=== PATIENT | male | born 1980 | race Two or more races ===

== ENCOUNTER 2023-05-08 19:26 | Emergency (ER) | payer OTHER ==
[~2023-05-08] VITALS: Ht 182.9 cm; Wt 75.0 kg
[2023-05-08 21:41] LABS: Basophils # (auto) 0 10 ^3/uL (0-0.2); Basophils % (auto) 0.4 % (0.0-2.0); Eosinophils # (auto) 0.1 10 ^3/uL (0-0.8); Eosinophils % (auto) 1.3 % (0.0-7.0); Hematocrit 49.1 % (41.0-53.0); Hemoglobin 16.5 g/dL (13.5-17.5); Lymphocytes # (auto) 1.9 10 ^3/uL (0.4-5.4); Lymphocytes % (auto) 19.3 % (10.0-50.0); Mean Corpuscular Hemoglobin 30.4 pg (28.0-32.0); Mean Corpuscular Hgb Conc. 33.7 g/dL (32.0-36.0); Mean Corpuscular Volume 90.2 fL (80.0-100.0); Monocytes # (auto) 0.8 10 ^3/uL (0-1.3); Monocytes % (auto) 8.4 % (0.0-12.0); Neutrophils # (auto) 6.8 10 ^3/uL (1.6-8.6); Neutrophils % (auto) 70.6 % (37.0-80.0); Nucleated Red Blood Cells % 0.1 %; Red Blood Cells 5.44 10^6/uL (4.5-5.90); Red Cell Distribution Width 13.6 % (11.8-14.3); White Blood Cell 9.7 10^3/uL (4.4-10.8)
[2023-05-08 22:04] LABS: Alanine Aminotransferase 19 U/L (7-40); Albumin 4.3 g/dL (3.2-4.8); Alkaline Phosphatase 111 U/L (46-116); Anion Gap 4 (5-15); Aspartate Aminotransferase 14 U/L (13-40); BUN/Creatinine Ratio 11.5 (10.0-20.0); Bilirubin, Total 0.4 mg/dL (0.2-1.0); Blood Urea Nitrogen 10 mg/dL (9-23); Calcium 9.5 mg/dL (8.7-10.4); Carbon Dioxide 31 mmol/L (20-30); Chloride 105 mmol/L (98-107); Glucose 96 mg/dL (74-106); Potassium 4.1 mmol/L (3.5-5.1); Sodium 140 mmol/L (136-145); Total Protein 7.7 g/dL (5.7-8.2)
[2023-05-08] MEDS ORDERED: CEPH500C PO (23:14)
[2023-05-08] MEDS ORDERED: MUPI2CRE17 EX (23:14)
[2023-05-08 23:39] VITALS: BP 138/89; PULSE 102; RESP 18; TEMP 97.8; O2SAT 98
== END 2023-05-08 23:41 | disposition home or self-care (01) ==
LOC: ER 19:26
DX: S91.001A Unspecified open wound, right ankle, initial encounter (principal); I73.9 Peripheral vascular disease, unspecified; X58.XXXA Exposure to other specified factors, initial encounter; Y93.89 Activity, other specified; Y92.89 Other specified places as the place of occurrence of the external cause; Y99.8 Other external cause status
CPT/HCPCS: 36415; 80053; 85025

== ENCOUNTER 2023-06-18 20:40 | Emergency (ER) | payer OTHER ==
[~2023-06-18] VITALS: Ht 182.9 cm; Wt 112.0 kg
[~2023-06-18 20:40] MED LIST: CEPH500C PO; MUPI2CRE17 EX
[2023-06-18 20:55] VITALS: BP 138/75; PULSE 114; RESP 18; TEMP 98.1; O2SAT 98
[2023-06-18 22:42] LABS: Basophils # (auto) 0 10 ^3/uL (0-0.2); Basophils % (auto) 0.4 % (0.0-2.0); Eosinophils # (auto) 0.2 10 ^3/uL (0-0.8); Eosinophils % (auto) 1.6 % (0.0-7.0); Hematocrit 50.6 % (41.0-53.0); Hemoglobin 16.9 g/dL (13.5-17.5); Lymphocytes % (auto) 18.1 % (10.0-50.0); Mean Corpuscular Hgb Conc. 33.4 g/dL (32.0-36.0); Mean Corpuscular Volume 89.8 fL (80.0-100.0); Monocytes % (auto) 8.9 % (0.0-12.0); Nucleated Red Blood Cells % 0.1 %; Red Blood Cells 5.63 10^6/uL (4.5-5.90); Red Cell Distribution Width 13.5 % (11.8-14.3); White Blood Cell 11.2 10^3/uL (4.4-10.8)
[2023-06-18 22:53] LABS: Alanine Aminotransferase 21 U/L (7-40); Albumin 4.6 g/dL (3.2-4.8); Alkaline Phosphatase 113 U/L (46-116); Anion Gap 6 (5-15); Aspartate Aminotransferase 12 U/L (13-40); BUN/Creatinine Ratio 10.2 (10.0-20.0); Blood Urea Nitrogen 9 mg/dL (9-23); Carbon Dioxide 27 mmol/L (20-30); Chloride 105 mmol/L (98-107); Glucose 109 mg/dL (74-106); Potassium 4.1 mmol/L (3.5-5.1); Sodium 138 mmol/L (136-145)
[2023-06-18 22:54] LABS: Bilirubin, Total 0.3 mg/dL (0.2-1.0); Total Protein 7.9 g/dL (5.7-8.2)
[2023-06-19] MEDS ORDERED: TETANUS-DIPTH-ACEL PERTUSSIS 0.5ML SYR Tdap IM ONE
[2023-06-19] MEDS ORDERED: CEPHALEXIN 250 MG CAP PO ONE
[2023-06-19] MEDS ORDERED: SULFAMETHOX W/TRIMETH(800/160MG) DS TAB PO ONE
[2023-06-19] MEDS ORDERED: AUG875T PO (00:45)
[2023-06-19] MEDS ORDERED: BACDST PO (00:45)
[2023-06-19] MEDS ORDERED: IBUP-1455 PO (00:49)
[2023-06-19] MEDS ORDERED: CHLO4SOL EX (00:49)
== END 2023-06-19 00:57 | disposition home or self-care (01) ==
LOC: ER 20:40
DX: L03.115 Cellulitis of right lower limb (principal); Z79.899 Other long term (current) drug therapy
CPT/HCPCS: 36415; 80053; 83605; 85025; 90471; 90715

== ENCOUNTER 2023-09-09 05:15 | Emergency (ER) | payer OTHER ==
[~2023-09-09] VITALS: Ht 182.9 cm; Wt 113.2 kg
[~2023-09-09 05:15] MED LIST changes: +AUG875T PO; +BACDST PO; +CHLO4SOL EX; +IBUP-1455 PO
[2023-09-09 06:15] VITALS: BP 135/95; PULSE 90; RESP 18; O2SAT 100
[2023-09-09] MEDS ORDERED: VANCOMYCIN 1GM/200ML 200 ML IV ONE (07:30)
== END 2023-09-09 17:50 | disposition left against medical advice (07) ==
LOC: ER 05:15
DX: L03.115 Cellulitis of right lower limb (principal); M79.661 Pain in right lower leg; I10 Essential (primary) hypertension; F17.210 Nicotine dependence, cigarettes, uncomplicated; Z79.1 Long term (current) use of non-steroidal anti-inflammatories (NSAID); Z79.2 Long term (current) use of antibiotics; Z79.899 Other long term (current) drug therapy
CPT/HCPCS: 73590; 73620; 93971

== ENCOUNTER 2024-03-09 11:30 | Emergency (ER) | payer OTHER ==
[~2024-03-09] VITALS: Ht 182.9 cm; Wt 111.0 kg
[2024-03-09 13:09] LABS: Basophils # (auto) 0.1 10 ^3/uL (0-0.2); Basophils % (auto) 1.1 % (0.0-2.0); Eosinophils # (auto) 0.2 10 ^3/uL (0-0.8); Eosinophils % (auto) 1.8 % (0.0-7.0); Hematocrit 48.9 % (41.0-53.0); Hemoglobin 16.3 g/dL (13.5-17.5); Lymphocytes # (auto) 1.2 10 ^3/uL (0.4-5.4); Lymphocytes % (auto) 14.5 % (10.0-50.0); Mean Corpuscular Hemoglobin 29.6 pg (28.0-32.0); Mean Corpuscular Hgb Conc. 33.4 g/dL (32.0-36.0); Mean Corpuscular Volume 88.6 fL (80.0-100.0); Monocytes # (auto) 0.8 10 ^3/uL (0-1.3); Neutrophils # (auto) 6.2 10 ^3/uL (1.6-8.6); Neutrophils % (auto) 73.6 % (37.0-80.0); Nucleated Red Blood Cells % 0.1 %; Platelet Count (auto) 262 10^3/uL (140-450); Red Blood Cells 5.52 10^6/uL (4.5-5.90); Red Cell Distribution Width 13.5 % (11.8-14.3); White Blood Cell 8.5 10^3/uL (4.4-10.8)
[2024-03-09 13:26] LABS: Alanine Aminotransferase 19 U/L (7-40); Albumin 4.1 g/dL (3.2-4.8); Alkaline Phosphatase 108 U/L (46-116); Anion Gap 2 (5-15); Aspartate Aminotransferase 9 U/L (13-40); BUN/Creatinine Ratio 11.2 (10.0-20.0); Bilirubin, Total 0.6 mg/dL (0.2-1.0); Blood Urea Nitrogen 11 mg/dL (9-23); Calcium 9.6 mg/dL (8.7-10.4); Carbon Dioxide 33 mmol/L (20-30); Chloride 106 mmol/L (98-107); Glucose 100 mg/dL (74-106); Potassium 4.1 mmol/L (3.5-5.1); Sodium 141 mmol/L (136-145); Total Protein 7.1 g/dL (5.7-8.2)
[2024-03-09 13:34] LABS: CRP High Sensitivity 1.26 mg/dL (<1.0)
[2024-03-09] MEDS ORDERED: VANCOMYCIN PER PHARMACY 0 MG IV SCH (14:15)
[2024-03-09 14:41] LABS: Erythrocyte Sedimentation Rate 2 mm/hr (0-20)
[2024-03-09] MEDS ORDERED: VANCOMYCIN 1GM/200ML 200 ML IV SCH (15:15)
[2024-03-09 15:47] LABS: Amphetamine Screen, Urine Pos (NEGATIVE); Barbiturate Scree,Urine Neg (NEGATIVE); Benzodiazephine Screen, Urine Neg (NEGATIVE)
[2024-03-09 15:49] LABS: Cannabinoid Screen, Urine Neg (NEGATIVE); Cocaine Screen, Urine Neg (NEGATIVE); Opiate Scree,Urine Neg (NEGATIVE); Phencyclidine Screen, Urine Neg (NEGATIVE)
[2024-03-09] MEDS: VANCOMYCIN 1GM/200ML 200 ML IV SCH (16:04)
[2024-03-09 16:07] VITALS: PULSE 96; RESP 16; O2SAT 98
[2024-03-09] MEDS: PIPERACILLIN-TAZOB 3.375GM 100 ML IV ONE (16:40)
[2024-03-09 16:42] VITALS: TEMP 97.5
[2024-03-09] MEDS ORDERED: AUG875T PO (17:57)
[2024-03-09] MEDS ORDERED: DOXY-286 PO (17:57)
[2024-03-09 18:13] VITALS: BP 130/72; PULSE 85; RESP 19; O2SAT 100
== END 2024-03-09 18:49 | disposition home or self-care (01) ==
LOC: ER 11:30
DX: S81.801A Unspecified open wound, right lower leg, initial encounter (principal); L03.116 Cellulitis of left lower limb; L03.115 Cellulitis of right lower limb; F15.10 Other stimulant abuse, uncomplicated; I10 Essential (primary) hypertension; F17.210 Nicotine dependence, cigarettes, uncomplicated; F12.10 Cannabis abuse, uncomplicated; E11.9 Type 2 diabetes mellitus without complications; Z79.899 Other long term (current) drug therapy
CPT/HCPCS: 36415; 80053; 80307; 83605; 83880; 85025; 85652; 86141; 87040; 93970; 96365; 96366; 96368; 99285; J2543; J3370

== ENCOUNTER 2024-10-07 02:11 | Emergency (ER) | payer MEDICAID, OTHER ==
[~2024-10-07] VITALS: Ht 182.9 cm; Wt 106.3 kg
[~2024-10-07 02:11] MED LIST changes: +DOXY-286 PO
[2024-10-07] MEDS ORDERED: DOXY100C4 PO (03:27)
--- NOTE | 2024-10-07 03:32 | ED.PDOC ---
History of Present Illness(SKN HPI Comments Pt presents to ED d/t to right lower extremity swelling. Pt states this has been on going for the past 2 years. Pt admits to odor, and drainage. Right ankle currently wrapped in dressing. Denies any other PMH. VSS. Chief Complaint: Lower Extremity Time Seen by MD: 02:27 History of Present Illness: Nurses Notes, Medications, Allergies Allergies: Coded Allergies: NO KNOWN ALLERGIES (Unverified , 05/08/23) Home Meds Active Scripts Amoxicillin & Pot Clavulanate (AUGMENTIN TABLET) 875 Mg Tb, 875 MG PO BID for 10 Days, #20 TAB Prov:ROBERTO PEREZ MD 03/09/24 Doxycycline Hyclate (DOXYCYCLINE HYCLATE) 100 Mg Tab, 1 TAB PO BID, #20 TAB Prov:ROBERTO PEREZ MD 03/09/24 Ibuprofen Micronized (Ibuprofen) 800 Mg Tab, 800 MG PO Q8HP PRN, #20 TAB Prov:AMANDA HUFFMAN [facility] 06/19/23 Chlorhexidine Gluconate (GNP ANTISEPTIC SKIN CLEAN) 4 % Sweta, 4 % EX BID for 14 Days, #250 ML Prov:AMANDA HUFFMAN [facility] 06/19/23 Amoxicillin & Pot Clavulanate (AUGMENTIN TABLET) 875 Mg Tb, 875 MG PO BID for 14 Days, #28 TAB Prov:AMANDA HUFFMAN [facility] 06/19/23 Sulfamethoxazole W/Trimethopri (Bactrim Ds Tablet) 1 Tab Tb, 1 TAB PO BID for 14 Days, #28 TAB Prov:AMANDA HUFFMAN [facility] 06/19/23 Mupirocin Calcium (Topical) (MUPIROCIN) 2 % Cre, 2 % EX QID for 14 Days, #1 CRE Prov:YOLA GUZMÁN [facility] 05/08/23 Cephalexin Monohydrate (Cephalexin) 500 Mg Cap, 1 CAP PO QID for 7 Days, #40 CAP Prov:YOLA GUZMÁN [facility] 05/08/23 Information Source: Patient Mode of Arrival: Ambulatory Past Medical History PAST MEDICAL HISTORY: HTN Surgical History: Denies all surgeries Family History Family History: Family hx of DM Social History Smoker: Cigarettes Alcohol: Denies ETOH Use Drugs: Marijuana Lives In: Unknown Constitutional: denies: chills, diaphoresis, fatigue, fever, malaise, sweats, weakness, others EENTM: denies: blurred vision, double vision, ear bleeding, ear discharge, ear drainage, ear pain, ear ringing, eye pain, eye redness, hearing loss, mouth pain, mouth swelling, nasal discharge, nose bleeding, nose congestion, nose pain, photophobia, tearing, throat pain, throat swelling, voice changes, others Respiratory: denies: cough, hemoptysis, orthopnea, SOB at rest, shortness of breath, SOB with excertion, stridor, wheezing, others Cardiovascular: denies: chest pain, dizzy spells, diaphoresis, Dyspnea on exertion, edema, irregular heart beat, left arm pain, lightheadedness, palpitations, PND, syncope, others Gastrointestinal: denies: abdomen distended, abdominal pain, blood streaked bowels, constipated, diarrhea, dysphagia, difficulty swallowing, hematemesis, melena, nausea, poor appetite, poor fluid intake, rectal bleeding, rectal pain, vomiting, others Genitourinary: denies: burning, dysuria, flank pain, frequency, hematuria, incontinence, penile discharge, penile sore, pain, testicle pain, testicle swelling, urgency, others Neurological: denies: dizziness, fainting, headache, left sided numbness, left sided weakness, numbness, paresthesia, pre-existing deficit, right sided numbness, right sided weakness, seizure, speech problems, tingling, tremors, weakness, others Musculoskeletal: denies: back pain, gout, joint pain, joint swelling, muscle pain, muscle stiffness, neck pain, others Integumetry: reports: wounds (Ulcer right lower leg); denies: bruises, change in color, change in hair/nails, dryness, laceration, lesions, lumps, rash, others Allergic/Immunocompromised: denies: Difficulty Healing, Frequent Infections, Hives, Itching, others Hematologic/Lymphatic: denies: anemia, blood clots, easy bleeding, easy bruising, swollen glands, others Physical Exam General Appearance: No Apparent Distress, Normal HEENT: Normal ENT Inspection, Pharynx Normal, TMs Normal Neck: Full Range of Motion, Non-Tender Respiratory: Lungs Clear, No Respiratory Distress, Normal Breath Sounds Cardiovascular: No Murmur, Normal Peripheral Pulses, Regular Rate/Rhythm Breast Exam: Deferred Gastrointestinal: No Organomegaly, Non Tender, Soft Genitalia: Deferred Pelvic: Deferred Rectal: Deferred Extremities: Normal capillary refill, Normal inspection, Normal range of motion, Non-tender, No pedal edema Musculoskeletal : Apperance: Normal Neurologic: Alert, day care attendant II-XII nml as Tested, No Motor Deficits, Normal Affect, Normal Mood, No Sensory Deficits Cerebellar Function: Normal Reflexes: Normal Skin: Dry, Normal Color, Warm, Wounds (Half-dollar size ulceration right lower medial leg without fat or necrosis exposure positive circulation sensory and motion positive pedal pulse) Lymphatic: No Adenopathy Was a procedure done? Was a procedure done?: No Differential Diagnosis (INTG) Differential Diagnosis: Cellulitis Abscess: Abscess, Erysipelas X-Ray, Labs, Meds, VS Vital Signs Date Time Temp Pulse Resp B/P (MAP) Pulse Ox O2 Delivery O2 Flow Rate FiO2 10/07/24 02:23 98.1 113 16 130/90 (103) 97 98.1 X-Ray, Labs, Meds, VS Comment Patient given Rocephin 1000 mg IM. Doxycycline twice daily x7 days. Wound cleansed and dressed. Advised to follow up with PCP in 1-2 days. Medications as prescribed side effects discussed. ER return precautions given patient indicates understanding agrees with discharge plan of care. 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
[2024-10-07] MEDS: cefTRIAXone SOD 1,000 MG VL IM ONE (03:52)
[2024-10-07 04:01] VITALS: BP 117/71; PULSE 108; RESP 16; TEMP 98.1; O2SAT 98
== END 2024-10-07 04:05 | disposition home or self-care (01) ==
LOC: ER 02:11
DX: L97.311 Non-pressure chronic ulcer of right ankle limited to breakdown of skin (principal); I73.9 Peripheral vascular disease, unspecified; I10 Essential (primary) hypertension; F17.210 Nicotine dependence, cigarettes, uncomplicated; Z79.2 Long term (current) use of antibiotics; Z79.899 Other long term (current) drug therapy
CPT/HCPCS: 96372; 99283; J0696